=== PATIENT | male | born 2000 | race Caucasian/White ===

== ENCOUNTER 2022-10-12 08:58 | Emergency (ER) | payer OTHER ==
[~2022-10-12] VITALS: Wt 172.4 kg
== END 2022-10-12 09:37 | disposition home or self-care (01) ==
LOC: ED 08:58
DX: S61.211A Laceration without foreign body of left index finger without damage to nail, initial encounter (principal); W26.0XXA Contact with knife, initial encounter; Y93.89 Activity, other specified; Y92.89 Other specified places as the place of occurrence of the external cause; Y99.0 Civilian activity done for income or pay